=== PATIENT | male | born 1990 | race Caucasian/White ===

== ENCOUNTER 2024-05-05 22:20 | Inpatient (IN) ==
[2024-05-05] MEDS: Thiamine 100 MG/ML 2 ml VIAL (200 mg) IM ONE (23:28)
[2024-05-05] MEDS: LORazepam 2 mg VIAL 1 ml IV PUSH SCH (23:28)
[2024-05-06 00:01] LABS: High Sens Troponin Baseline 25 pg/mL (<20)
[2024-05-06] MEDS ORDERED: Lorazepam PYXIS KEY PRN ×5 (00:21→18:30)
[2024-05-06] MEDS ORDERED: LORazepam 2 mg VIAL 1 ml IV PUSH ONE (00:21)
[2024-05-06] MEDS: LORazepam 2 mg VIAL 1 ml IV PUSH ONE ×6 (00:29→18:33)
[2024-05-06] MEDS: Lactated Ringers 1000 ml BAG 1,000 ML IV ONE (00:31)
[2024-05-06] MEDS: Lactated Ringers SEPSIS* BAG 2,400 ML IV ONE (01:22)
[2024-05-06 01:38] LABS: Hematocrit 38.4 % (38-53); Mean Corpuscular Hemoglobin 31.8 pg (27-33); Mean Corpuscular Hgb Conc 33.9 g/dL (31-36); Mean Corpuscular Volume 93.7 fL (80-97); Red Cell Distribution Width 14.8 % (12-17)
[2024-05-06 01:39] LABS: ABS Lymphocytes 0.5 10^3/uL (1.0-4.8); ABS Monocytes 0.6 10^3/uL (0.0-1.1); ABS Neutrophils 12.8 10^3/uL (1.5-7.6); ABS Nucleated RBC 0.03 10^3/ul
[2024-05-06 01:40] LABS: Lymphocyte % 3.5 %; Nucleated Red Blood Cells % 0.2 %/100WBC (0.0-0.8)
[2024-05-06 01:42] LABS: Platelet Count 83 10^3/uL (150-450)
[2024-05-06 01:44] LABS: Sodium 123 mmol/L (135-145)
[2024-05-06 01:45] LABS: Chloride 82 mmol/L (101-111)
[2024-05-06 01:46] LABS: Anion Gap 22 mmol/L (2-16); Blood Urea Nitrogen 7 mg/dL (6-24); CO2 Carbon Dioxide 19 mmol/L (22-32); Glucose 138 mg/dL (70-100)
[2024-05-06 01:47] LABS: Calcium 9.1 mg/dL (8.6-10.3); Creatinine, Serum 0.69 mg/dL (0.67-1.17); eGFR CKD-EPI 123.8 (>60)
[2024-05-06 01:49] LABS: Magnesium 1.7 mg/dL (1.9-2.7); Total Protein 5.9 g/dL (6.4-8.9)
[2024-05-06 01:50] LABS: ALT 141 U/L (7-52); Albumin 3.5 g/dL (3.2-5.2); Albumin/Globulin Ratio 1.5 (1-3); Alkaline Phosphatase 317 U/L (35-149); Globulin 2.4 g/dL (2-4)
[2024-05-06] MEDS: Magnesium Sulfate IV 1GM/100ML 1 GM/100 ML BAG IV ONE (03:13)
[2024-05-06] MEDS: Potassium Chlor 20 meq TAB.ER PO ONE ×2 (03:36→10:32)
[2024-05-06] MEDS ORDERED: Metoprolol Tartrate 5 mg VIAL 5 ml VIAL (1 mg/ml) IV ONE (03:59)
[2024-05-06] MEDS ORDERED: Metoprolol Tartrate 5 mg VIAL 5 ml VIAL (1 mg/ml) IV PRN (03:59)
[2024-05-06] MEDS ORDERED: Polyethylene Glycol 3350 17 GM PACKET PO PRN (04:04)
[2024-05-06] MEDS ORDERED: Al Hydrox/Mg Hydrox/Simet LIQ 30 ML UDC PO PRN (04:04)
[2024-05-06] MEDS: Metoprolol Tartrate 5 mg VIAL 5 ml VIAL (1 mg/ml) IV ONE (04:16)
[2024-05-06] MEDS ORDERED: Sulfur Hexaflouride MICROSPHR 25 MG VIAL IV PRN (04:20)
[2024-05-06] MEDS: Magnesium Sulfate 2 gm BAG 2 GM/50 ML BAG IVPB ONE (04:40)
[2024-05-06] MEDS: NS 0.9% 1000 ml BAG 1,000 ML IV SCH (04:43)
[2024-05-06] MEDS: Magnesium Sulf 4 GM/100 ML IV 4,000 MG/100 ML BAG IVPB ONE (04:50)
[2024-05-06] MEDS: KCL 20 MEQ/100 ML IVPREMIX 20 MEQ/100 ML BAG IV SCH (05:57)
[2024-05-06 06:31] LABS: Calcium 8.7 mg/dL (8.6-10.3); Creatinine, Serum 0.81 mg/dL (0.67-1.17); Potassium 3.1 mmol/L (3.5-5.0); eGFR CKD-EPI 117.9 (>60)
[2024-05-06] MEDS ORDERED: D5LR 20 MEQ KCL 1000 ml BAG 1,000 ML IV SCH (08:00)
[2024-05-06] MEDS: Multivitamins/Minerals TAB PO SCH (08:16)
[2024-05-06] MEDS: D5W NS 0.9% 20Meq KCL 1000 ml 1,000 ML IV SCH (09:04)
[2024-05-06 09:36] LABS: INR 1.61 (0.85-1.14)
[2024-05-06 14:51] LABS: Albumin 3.2 g/dL (3.2-5.2); Albumin/Globulin Ratio 1.6 (1-3); Calcium 9.1 mg/dL (8.6-10.3); Creatinine, Serum 1.17 mg/dL (0.67-1.17); Potassium 3.6 mmol/L (3.5-5.0); Total Bilirubin 9.6 mg/dL (0.2-1.0); Total Protein 5.2 g/dL (6.4-8.9); eGFR CKD-EPI 83.4 (>60)
[2024-05-06] MEDS: LORazepam 2 mg VIAL 1 ml ONE ×2 (16:15→18:39)
[2024-05-06] MEDS: LORazepam 2 mg VIAL 1 ml IV PUSH SCH ×2 (16:53→19:00)
[2024-05-06] MEDS: NS 0.9% 500 ml BAG 500 ML IV ONE (18:23)
[2024-05-06] MEDS: D5NS 0.9% 1000 ml BAG 1,000 ML IV SCH (19:04)
[2024-05-06] MEDS ORDERED: PHENobarbital IV 65 MG/ML 1 ml VIAL IVPB ONE (20:41)
[2024-05-06] MEDS: NS 0.9% IVPB ONE (21:28)
[2024-05-06] MEDS: PHENOBARBITAL IVPB ONE (21:28)
[2024-05-07] MEDS: NS 0.9% 500 ml BAG 500 ML IV ONE (00:10)
[2024-05-07] MEDS: NS 0.9% 250 ml 250 ML IV ONE (02:33)
[2024-05-07] MEDS: Digoxin IV 0.5 MG/2 ML AMP (0.25 MG/ML) IV SLOW PU ONE (03:30)
[2024-05-07 04:13] LABS: ABS Basophils 0.1 10^3/uL (0.0-0.1); ABS Lymphocytes 1.3 10^3/uL (1.0-4.8); ABS Monocytes 0.6 10^3/uL (0.0-1.1); ABS Neutrophils 9.1 10^3/uL (1.5-7.6); ABS Nucleated RBC 0.01 10^3/ul; Eosinophil % 0.1 %; Hematocrit 33.1 % (38-53); Hemoglobin 11.6 g/dL (13.2-16.3); Mean Corpuscular Hemoglobin 32.4 pg (27-33); Mean Corpuscular Hgb Conc 35.1 g/dL (31-36); Mean Corpuscular Volume 92.3 fL (80-97); Mean Platelet Volume 8.6 fL (7.5-11.2); Nucleated Red Blood Cells % 0.1 %/100WBC (0.0-0.8); Platelet Count 86 10^3/uL (150-450); Red Blood Count 3.58 10^6/uL (4.06-5.63); Red Cell Distribution Width 14.7 % (12-17); White Blood Count 11.2 10^3/uL (3.6-10.2)
[2024-05-07 04:42] LABS: INR 1.73 (0.85-1.14)
[2024-05-07 04:59] LABS: ALT 111 U/L (7-52); AST 348 U/L (13-39); Albumin 2.9 g/dL (3.2-5.2); Albumin/Globulin Ratio 1.6 (1-3); Alkaline Phosphatase 257 U/L (35-149); Anion Gap 6 mmol/L (2-16); Blood Urea Nitrogen 12 mg/dL (6-24); CO2 Carbon Dioxide 28 mmol/L (22-32); Calcium 8.7 mg/dL (8.6-10.3); Chloride 93 mmol/L (101-111); Creatinine, Serum 1.38 mg/dL (0.67-1.17); Globulin 1.8 g/dL (2-4); Glucose 108 mg/dL (70-100); Potassium 3.4 mmol/L (3.5-5.0); Sodium 127 mmol/L (135-145); Total Bilirubin 9.8 mg/dL (0.2-1.0); Total Protein 4.7 g/dL (6.4-8.9); eGFR CKD-EPI 68.4 (>60)
[2024-05-07] MEDS: Metoprolol Tartrate 5 mg VIAL 5 ml VIAL (1 mg/ml) IV ONE (05:51)
[2024-05-07] MEDS: KCL 20 MEQ/100 ML IVPREMIX 20 MEQ/100 ML BAG IV SCH (05:53)
[2024-05-07] MEDS: NS 0.9% 1000 ml BAG 1,000 ML IV SCH (05:56)
[2024-05-07 08:59] LABS: Magnesium 2.3 mg/dL (1.9-2.7); Phosphorus < 1.0 mg/dL (2.5-5.0)
[2024-05-07] MEDS: Albumin Human 25% 25 GM/100 ML BTL IV SCH (09:21)
[2024-05-07] MEDS: cefTRIAXone 1 gm/50 mL D5W 1 GM/50 ML BAG IV SCH (10:08)
[2024-05-07] MEDS: NS 0.9% IV ONE (10:22)
[2024-05-07] MEDS: PHENOBARBITAL IV ONE (10:22)
[2024-05-07] MEDS: Thiamine 100 MG/ML 2 ml VIAL 100 MG in NS 0.9% 50 ML 50 ML IV SCH (10:42)
[2024-05-07] MEDS: ACETYLCYSTEINE IV ONE (11:01)
[2024-05-07] MEDS: D5W IV ONE (11:01)
[2024-05-07] MEDS: methylPREDNISolone SOD SUCC 40 mg/ml 1 ml VIAL IV SCH (11:13)
[2024-05-07] MEDS: Sodium Phosphate IV 45 MMOL in NS 0.9% 250 ml 250 ML IV ONE ×2 (11:14→18:01)
[2024-05-07] MEDS ORDERED: ACETYLCYSTEINE IV SCH ×3 (12:00→18:00)
[2024-05-07] MEDS ORDERED: D5W IV SCH ×3 (12:00→18:00)
[2024-05-07] MEDS: Piperacillin/Tazobac 3.375 BAG 3.375 GM/100 ML BAG IV ONE (12:28)
[2024-05-07] MEDS: Famotidine IV 10 MG/ML 2 ml VIAL (20 mg) IV SLOW PU SCH (12:28)
[2024-05-07] MEDS: Norepinephrine 4 MG/250mL D5W 4,000 MCG/250 ML BAG IV ONE (12:33)
[2024-05-07] MEDS: Norepinephrine 4 MG/250mL D5W 4,000 MCG/250 ML BAG IV SCH (12:40)
[2024-05-07] MEDS ORDERED: Norepinephrine 4 MG/250mL D5W 4,000 MCG/250 ML BAG IV SCH ×2 (13:00)
[2024-05-07] MEDS ORDERED: Zosyn per Pharmacy NOTE FOLLOW UP SCH (13:00)
[2024-05-07] MEDS: Heparin 5000 UNITS/ML 1 mL VIAL SUBCUT SCH (15:02)
[2024-05-07 15:35] LABS: Venous Bicarbonate HCO3 26.2 mmol/L (24-28)
[2024-05-07] MEDS ORDERED: Midazolam 10 mg/10 ml VIAL 1 mg/ml 10 ml VIAL (10 mg) ONE (15:57)
[2024-05-07] MEDS ORDERED: Etomidate 40 mg/20 ml (2 MG/ML) 20 ml VIAL (40 mg) ONE (15:57)
[2024-05-07] MEDS ORDERED: fentaNYL 250 mcg/5 ml 50 MCG/ML 5 ml VIAL (250 MCG) ONE (15:57)
[2024-05-07 15:59] LABS: Cholesterol 147 mg/dL; HDL Cholesterol < 4.2 mg/dL; LDL Cholesterol 73 mg/dL; Triglycerides 350 mg/dL
[2024-05-07] MEDS: Propofol 10 mg/ml 100 ML BTL 1,000 MG/100 ML BTL IV SCH (16:01)
[2024-05-07 16:15] LABS: Calcium 8.5 mg/dL (8.6-10.3); Creatinine, Serum 1.2 mg/dL (0.67-1.17); eGFR CKD-EPI 80.9 (>60)
[2024-05-07] MEDS: Midazolam 5 mg/5 ml VIAL 1 mg/ml 5 ml VIAL (5 mg) IV SLOW PU PRN (16:28)
[2024-05-07 16:30] LABS: Phosphorus 1.4 mg/dL (2.5-5.0)
[2024-05-07] MEDS: Rocuronium 50 mg VIAL 10 mg/ml 5 ml VIAL (50 mg) ONE (16:38)
[2024-05-07] MEDS: fentaNYL 100 mcg/2 ml 50 MCG/ML VIAL IV SLOW PU PRN (16:45)
[2024-05-07] MEDS: Thiamine 100 MG/ML 2 ml VIAL 500 MG in NS 0.9% 250 ml 250 ML IV SCH (17:35)
[2024-05-07 17:52] LABS: Hepatitis B Surface Antigen Nonreactive (Nonreactive)
[2024-05-07 17:57] LABS: Hepatitis A Ab IgM Negative (Negative)
[2024-05-07 17:58] LABS: Hepatitis B Core IgM Nonreactive (Nonreactive)
[2024-05-07 18:10] LABS: Hepatitis C Antibody Negative (Negative)
[2024-05-07 18:10] LABS: Urine Appearance Turbid; Urine Bilirubin 2+ (Negative); Urine Blood Negative (Negative); Urine Color Dark-Yellow; Urine Glucose Trace (Negative); Urine Ketones 2+ (Negative); Urine Nitrite Negative (Negative); Urine Protein 1+ (>=30 mg/dL) (Negative); Urine Specific Gravity 1.041 (1.002-1.030); Urine Urobilinogen Negative (Negative)
[2024-05-07] MEDS: Acetylcysteine IV 10,000 MG in D5W 1000 ml BAG 1,000 ML IV ONE (18:14)
[2024-05-07] MEDS: Midazolam PREMIXBAG 1 MG/ML NS 100 ML IV SCH (18:32)
[2024-05-07] MEDS ORDERED: PHENobarbital IV 65 MG/ML 1 ml VIAL IVPB ONE (18:41)
[2024-05-07] MEDS: fentaNYL INFUSION 50 mcg/mL VL 2,500 MCG/50 ML VIAL IV SCH (18:51)
[2024-05-07] MEDS: Midazolam 10 mg/10 ml VIAL 1 mg/ml 10 ml VIAL (10 mg) ONE ×2 (19:10)
[2024-05-07] MEDS: Midazolam 5 mg/5 ml VIAL 1 mg/ml 5 ml VIAL (5 mg) ONE (19:12)
[2024-05-07] MEDS: Propofol 10 mg/ml 100 ML BTL 1,000 MG/100 ML BTL ONE ×2 (19:12→19:14)
[2024-05-07] MEDS: fentaNYL 100 mcg/2 ml 50 MCG/ML VIAL ONE ×2 (19:16→19:17)
[2024-05-07] MEDS: Midazolam PREMIXBAG 1 MG/ML NS 100 ML IV ONE (19:17)
[2024-05-07 19:43] LABS: Urine Bacteria Absent /HPF (Absent); Urine Red Blood Cell Trace(0-2/hpf) /HPF (0-Trace); Urine Squamous Epithelial Cell Present /HPF (Absent); Urine White Blood Cell Trace(0-5/hpf) /HPF (0-Trace)
[2024-05-07 19:53] LABS: Resp Rate 14
[2024-05-07] MEDS: PHENobarbital IV 500 MG in NS 0.9% 100 ml BAG 100 ML IVPB ONE (19:54)
[2024-05-07 19:55] LABS: PCO2 Arterial 48 mmHg (35-45); PO2 Arterial 120 mmHg (80-100)
[2024-05-07] MEDS: Chlorhexidine MOUTHWASH 0.12% 15 ML UDC TOPICAL SCH (20:33)
[2024-05-07] MEDS: Pantoprazole VIAL 40 MG VIAL IV SCH (22:46)
[2024-05-08] MEDS: Acetaminophen IV 1 GM/100ML 1,000 MG/100 ML BAG IV PRN (02:13)
[2024-05-08] MEDS: fentaNYL INFUSION 50 mcg/mL VL 2,500 MCG/50 ML VIAL IV SCH (02:43)
[2024-05-08 04:41] LABS: INR 2.11 (0.85-1.14)
[2024-05-08 04:42] LABS: Hematocrit 32.7 % (38-53); Hemoglobin 11.2 g/dL (13.2-16.3); Mean Corpuscular Hemoglobin 32.9 pg (27-33); Mean Corpuscular Hgb Conc 34.4 g/dL (31-36); Mean Corpuscular Volume 95.8 fL (80-97); Mean Platelet Volume 8.5 fL (7.5-11.2); Platelet Count 115 10^3/uL (150-450); Red Blood Count 3.41 10^6/uL (4.06-5.63); Red Cell Distribution Width 15.7 % (12-17); White Blood Count 16.3 10^3/uL (3.6-10.2)
[2024-05-08 04:56] LABS: ABS Basophils 0.1 10^3/uL (0.0-0.1); ABS Lymphocytes 1.3 10^3/uL (1.0-4.8); ABS Monocytes 1.1 10^3/uL (0.0-1.1); ABS Neutrophils 13.8 10^3/uL (1.5-7.6); ABS Nucleated RBC 0.01 10^3/ul; Lymphocyte % 8.1 %
[2024-05-08 06:05] LABS: ALT 97 U/L (7-52); Albumin 3.8 g/dL (3.2-5.2); Albumin/Globulin Ratio 2.1 (1-3); Alkaline Phosphatase 237 U/L (35-149); Anion Gap 14 mmol/L (2-16); Blood Urea Nitrogen 14 mg/dL (6-24); CO2 Carbon Dioxide 26 mmol/L (22-32); Calcium 7.7 mg/dL (8.6-10.3); Chloride 93 mmol/L (101-111); Creatinine, Serum 1.43 mg/dL (0.67-1.17); Globulin 1.8 g/dL (2-4); Glucose 158 mg/dL (70-100); Sodium 133 mmol/L (135-145); Total Bilirubin 11.6 mg/dL (0.2-1.0); Total Protein 5.6 g/dL (6.4-8.9); eGFR CKD-EPI 65.5 (>60)
[2024-05-08 10:37] LABS: Cholesterol 138 mg/dL; HDL Cholesterol < 4.2 mg/dL; Lipase 80 U/L (11.0-82.0); Triglycerides 468 mg/dL
[2024-05-08 10:52] LABS: LDL Cholesterol Direct 96 mg/dL
[2024-05-08] MEDS: Acetylcysteine IV 10,000 MG in D5W 1000 ml BAG 1,000 ML IV SCH (11:16)
[2024-05-08] MEDS: Phytonadione IV (Adult) 10 MG in NS 0.9% 50 ML 50 ML IV ONE (11:21)
[2024-05-08] MEDS ORDERED: D5W IV SCH (12:00)
[2024-05-08] MEDS ORDERED: ACETYLCYSTEINE IV SCH (12:00)
[2024-05-08] MEDS: SODIUM PHOSPHATE IV ONE (12:17)
[2024-05-08] MEDS: NS 0.9% IV ONE (12:17)
[2024-05-08 14:08] LABS: Resp Rate 20
[2024-05-08 14:10] LABS: PCO2 Arterial 55 mmHg (35-45); PO2 Arterial 171 mmHg (80-100)
[2024-05-08 14:17] LABS: Hematocrit 32.6 % (38-53); Hemoglobin 10.9 g/dL (13.2-16.3); Mean Corpuscular Hemoglobin 31.7 pg (27-33); Mean Corpuscular Hgb Conc 33.3 g/dL (31-36); Mean Corpuscular Volume 95.3 fL (80-97); Mean Platelet Volume 8.3 fL (7.5-11.2); Platelet Count 114 10^3/uL (150-450); Red Blood Count 3.42 10^6/uL (4.06-5.63); Red Cell Distribution Width 15.4 % (12-17); White Blood Count 13.7 10^3/uL (3.6-10.2)
[2024-05-08 14:59] LABS: Hematocrit 32.6 % (38-53); Hemoglobin 10.8 g/dL (13.2-16.3); Mean Corpuscular Hemoglobin 31.9 pg (27-33); Mean Corpuscular Hgb Conc 33.2 g/dL (31-36); Mean Corpuscular Volume 95.9 fL (80-97); Mean Platelet Volume 8.3 fL (7.5-11.2); Platelet Count 118 10^3/uL (150-450); Red Cell Distribution Width 15.8 % (12-17)
[2024-05-08] MEDS: Heparin DRIP 25,000 UNITS BAG 25,000 UNITS/250 ML BAG IV SCH ×2 (15:04→23:23)
[2024-05-08] MEDS: Heparin 5000 UNITS/ML 1 mL VIAL IV SCH (15:07)
[2024-05-08] MEDS: Heparin 5000 UNITS/ML 1 mL VIAL ONE (15:13)
[2024-05-08 15:27] LABS: Creatinine, Serum 1.68 mg/dL (0.67-1.17)
[2024-05-08 15:44] LABS: ABS Basophils 0.1 10^3/uL (0.0-0.1); ABS Lymphocytes 0.8 10^3/uL (1.0-4.8); ABS Monocytes 0.7 10^3/uL (0.0-1.1); ABS Neutrophils 12.4 10^3/uL (1.5-7.6); ABS Nucleated RBC 0.01 10^3/ul; Lymphocyte % 5.8 %; Nucleated Red Blood Cells % 0.1 %/100WBC (0.0-0.8)
[2024-05-08] MEDS: ZOSYN 3.375 GM x ONE DOSE over 30 miuntes IV (18:14)
[2024-05-08 18:15] LABS: Potassium, Whole Blood 3.9 mmol/L (3.4-4.5)
[2024-05-08] MEDS: SODIUM PHOSPHATE IV SCH (20:11)
[2024-05-08] MEDS: NS 0.9% IV SCH (20:11)
[2024-05-08] MEDS ORDERED: Sodium Phosphate IV 45 MMOL in NS 0.9% 250 ml 250 ML IV ONE (21:00)
[2024-05-08] MEDS ORDERED: Heparin 5000 UNITS/ML 1 mL VIAL IV SCH (22:00)
[2024-05-08] MEDS ORDERED: ZOSYN 3.375 GM Q8H per EXTENDED INFUSION IV SCH (22:00)
[2024-05-08 22:45] LABS: Hemoglobin 10.7 g/dL (13.2-16.3); Mean Corpuscular Hemoglobin 31.6 pg (27-33); Mean Corpuscular Hgb Conc 33.4 g/dL (31-36); Mean Corpuscular Volume 94.6 fL (80-97); Mean Platelet Volume 7.9 fL (7.5-11.2); Platelet Count 120 10^3/uL (150-450); Red Blood Count 3.38 10^6/uL (4.06-5.63); Red Cell Distribution Width 15.8 % (12-17); White Blood Count 14.2 10^3/uL (3.6-10.2)
[2024-05-08 23:26] LABS: ABS Basophils 0.1 10^3/uL (0.0-0.1); ABS Lymphocytes 0.9 10^3/uL (1.0-4.8); ABS Monocytes 0.9 10^3/uL (0.0-1.1); ABS Neutrophils 12.3 10^3/uL (1.5-7.6); ABS Nucleated RBC 0.01 10^3/ul; Lymphocyte % 6.6 %; Nucleated Red Blood Cells % 0.1 %/100WBC (0.0-0.8)
[2024-05-08] MEDS: DEXMEDETOMIDINE IV SCH (23:40)
[2024-05-08] MEDS: ZOSYN 3.375 GM Q8H per EXTENDED INFUSION IV SCH (23:56)
[2024-05-08 23:57] LABS: Creatinine, Serum 1.89 mg/dL (0.67-1.17); Phosphorus 6.2 mg/dL (2.5-5.0); eGFR CKD-EPI 46.9 (>60)
[2024-05-09 04:30] LABS: Hematocrit 31.3 % (38-53); Hemoglobin 10.4 g/dL (13.2-16.3); Mean Corpuscular Hemoglobin 31.7 pg (27-33); Mean Corpuscular Hgb Conc 33.3 g/dL (31-36); Platelet Count 122 10^3/uL (150-450); Red Cell Distribution Width 15.5 % (12-17); White Blood Count 12.9 10^3/uL (3.6-10.2)
[2024-05-09 04:36] LABS: INR 1.87 (0.85-1.14)
[2024-05-09 05:22] LABS: ABS Monocytes 0.9 10^3/uL (0.0-1.1); ABS Nucleated RBC 0.02 10^3/ul; Lymphocyte % 7.8 %; Nucleated Red Blood Cells % 0.2 %/100WBC (0.0-0.8)
[2024-05-09 05:49] LABS: Albumin/Globulin Ratio 2.4 (1-3); Calcium 6.9 mg/dL (8.6-10.3); Creatinine, Serum 1.83 mg/dL (0.67-1.17); Globulin 1.7 g/dL (2-4); HDL Cholesterol 4.7 mg/dL; Magnesium 1.9 mg/dL (1.9-2.7); Phosphorus 5.2 mg/dL (2.5-5.0); Potassium 3.3 mmol/L (3.5-5.0); Total Bilirubin 11.1 mg/dL (0.2-1.0); Total Protein 5.7 g/dL (6.4-8.9); eGFR CKD-EPI 48.7 (>60)
[2024-05-09] MEDS: KCL 20 MEQ/100 ML IVPREMIX 20 MEQ/100 ML BAG IV SCH (08:03)
[2024-05-09] MEDS: methylPREDNISolone SOD SUCC 40 mg/ml 1 ml VIAL IV SCH (08:10)
[2024-05-09] MEDS: Senna TAB 8.6 mg TAB PO SCH (09:32)
[2024-05-09 09:56] LABS: Resp Rate 25
[2024-05-09 10:03] LABS: PCO2 Arterial 47 mmHg (35-45); PO2 Arterial 143 mmHg (80-100)
[2024-05-09] MEDS: Thiamine 100 MG/ML 2 ml VIAL 250 MG in NS 0.9% 100 ml BAG 100 ML IV SCH (16:56)
[2024-05-09 17:47] LABS: Urine Appearance Turbid; Urine Bilirubin 1+ (Negative); Urine Blood 2+ (Negative); Urine Color Dark-Yellow; Urine Glucose Trace (Negative); Urine Ketones 1+ (Negative); Urine Nitrite Negative (Negative); Urine Protein 1+ (>=30 mg/dL) (Negative); Urine Specific Gravity 1.031 (1.002-1.030); Urine Urobilinogen Negative (Negative)
[2024-05-09 17:51] LABS: Urine Bacteria 1+ /HPF (Absent); Urine Red Blood Cell 3+(>10/hpf) /HPF (0-Trace); Urine Squamous Epithelial Cell Present /HPF (Absent); Urine White Blood Cell Trace(0-5/hpf) /HPF (0-Trace)
[2024-05-09] MEDS: Lactulose 30 ml UDC NG TUBE SCH (20:20)
[2024-05-09] MEDS: Polyethylene Glycol 3350 17 GM PACKET PO SCH (20:20)
[2024-05-10 05:16] LABS: Resp Rate 25
[2024-05-10 05:18] LABS: PCO2 Arterial 48 mmHg (35-45); PO2 Arterial 117 mmHg (80-100)
[2024-05-10 05:24] LABS: Hematocrit 31.5 % (38-53); Hemoglobin 10.7 g/dL (13.2-16.3); Mean Corpuscular Hemoglobin 32.4 pg (27-33); Mean Corpuscular Hgb Conc 34.1 g/dL (31-36); Mean Corpuscular Volume 95.2 fL (80-97); Mean Platelet Volume 7.9 fL (7.5-11.2); Platelet Count 137 10^3/uL (150-450); Red Blood Count 3.31 10^6/uL (4.06-5.63); Red Cell Distribution Width 15.9 % (12-17); White Blood Count 13.8 10^3/uL (3.6-10.2)
[2024-05-10 05:59] LABS: Anion Gap 13 mmol/L (2-16); Blood Urea Nitrogen 30 mg/dL (6-24); CO2 Carbon Dioxide 25 mmol/L (22-32); Calcium 6.7 mg/dL (8.6-10.3); Chloride 96 mmol/L (101-111); Creatinine, Serum 1.91 mg/dL (0.67-1.17); Glucose 140 mg/dL (70-100); Potassium 3.7 mmol/L (3.5-5.0); Sodium 134 mmol/L (135-145); eGFR CKD-EPI 46.3 (>60)
[2024-05-10 06:03] LABS: ALT 56 U/L (7-52); AST 148 U/L (13-39); Cholesterol 133 mg/dL; Magnesium 1.9 mg/dL (1.9-2.7); Phosphorus 2.7 mg/dL (2.5-5.0)
[2024-05-10 06:04] LABS: Albumin 4.3 g/dL (3.2-5.2); Albumin/Globulin Ratio 2.9 (1-3); Alkaline Phosphatase 158 U/L (35-149); Globulin 1.5 g/dL (2-4); Total Protein 5.8 g/dL (6.4-8.9); Triglycerides 289 mg/dL
[2024-05-10 06:15] LABS: HDL Cholesterol < 4.2 mg/dL; LDL Cholesterol 71 mg/dL
[2024-05-10 06:16] LABS: Total Bilirubin 12.1 mg/dL (0.2-1.0)
[2024-05-10 06:38] LABS: Activated Partial Thrombo Time 79.1 seconds (26.0-38.0); INR 1.63 (0.85-1.14)
[2024-05-10 07:15] LABS: ABS Basophils 0.1 10^3/uL (0.0-0.1); ABS Lymphocytes 1.2 10^3/uL (1.0-4.8); ABS Monocytes 1.3 10^3/uL (0.0-1.1); ABS Neutrophils 11.2 10^3/uL (1.5-7.6); ABS Nucleated RBC 0.01 10^3/ul; Eosinophil % 0.1 %; Lymphocyte % 8.4 %; Nucleated Red Blood Cells % 0.1 %/100WBC (0.0-0.8); RBC Morphology Normal (Normal)
[2024-05-10 11:29] LABS: Cytomegalovirus IgG Antibody Negative (Negative)
[2024-05-10] MEDS: NORMOSOL-R pH 7.4 1000 mL BAG 1,000 ML IV SCH (12:04)
[2024-05-10] MEDS: fentaNYL 100 mcg/2 ml 50 MCG/ML VIAL ONE (17:33)
[2024-05-11 04:50] LABS: Hematocrit 31.7 % (38-53); Hemoglobin 10.8 g/dL (13.2-16.3); Mean Corpuscular Hemoglobin 32.5 pg (27-33); Mean Corpuscular Hgb Conc 34.1 g/dL (31-36); Mean Corpuscular Volume 95.1 fL (80-97); Mean Platelet Volume 7.5 fL (7.5-11.2); Platelet Count 145 10^3/uL (150-450); Red Blood Count 3.34 10^6/uL (4.06-5.63); Red Cell Distribution Width 15.7 % (12-17); White Blood Count 13.4 10^3/uL (3.6-10.2)
[2024-05-11 05:09] LABS: Resp Rate 25
[2024-05-11 05:12] LABS: INR 1.58 (0.85-1.14)
[2024-05-11 05:17] LABS: PCO2 Arterial 48 mmHg (35-45); PO2 Arterial 147 mmHg (80-100)
[2024-05-11 06:37] LABS: Anion Gap 13 mmol/L (2-16); Blood Urea Nitrogen 28 mg/dL (6-24); CO2 Carbon Dioxide 27 mmol/L (22-32); Calcium 6.7 mg/dL (8.6-10.3); Chloride 100 mmol/L (101-111); Creatinine, Serum 1.34 mg/dL (0.67-1.17); Glucose 108 mg/dL (70-100); Potassium 3.9 mmol/L (3.5-5.0); Sodium 140 mmol/L (135-145); eGFR CKD-EPI 70.8 (>60)
[2024-05-11 06:47] LABS: ALT 50 U/L (7-52); AST 142 U/L (13-39); Albumin 3.8 g/dL (3.2-5.2); Albumin/Globulin Ratio 2.7 (1-3); Alkaline Phosphatase 145 U/L (35-149); Cholesterol 149 mg/dL; Globulin 1.4 g/dL (2-4); HDL Cholesterol < 4.2 mg/dL; LDL Cholesterol 70 mg/dL; Total Bilirubin 13.9 mg/dL (0.2-1.0); Total Protein 5.2 g/dL (6.4-8.9); Triglycerides 375 mg/dL
[2024-05-11] MEDS ORDERED: Heparin 5000 UNITS/ML 1 mL VIAL IV SCH (09:00)
[2024-05-11] MEDS: Heparin DRIP 25,000 UNITS BAG 25,000 UNITS/250 ML BAG IV SCH (09:16)
[2024-05-11] MEDS: Lidocaine 1% VIAL 10 MG/ML 30 ML VIAL ONE (10:42)
[2024-05-11 11:35] LABS: PCO2 Arterial 53 mmHg (35-45); PO2 Arterial 71 mmHg (80-100)
[2024-05-11 11:40] LABS: Body Fluid Appearance Clear; Body Fluid Color Amber
[2024-05-11 11:58] LABS: Body Fluid Total Nucleated 81 /mcL
[2024-05-11 12:03] LABS: EBV, IgG Ab to Early Antigen Negative (Negative)
[2024-05-11 12:38] LABS: Body Fluid Band 5 %; Body Fluid Mono 7 %; Body Fluid Total Cells Counted 200
[2024-05-11 15:32] LABS: PCO2 Arterial 47 mmHg (35-45); PO2 Arterial 133 mmHg (80-100)
[2024-05-11] MEDS ORDERED: Senna TAB 8.6 mg TAB PO PRN (17:46)
[2024-05-12 04:46] LABS: Hematocrit 33.7 % (38-53); Hemoglobin 11.3 g/dL (13.2-16.3); Mean Corpuscular Hgb Conc 33.4 g/dL (31-36); Mean Corpuscular Volume 95.7 fL (80-97); Mean Platelet Volume 7.7 fL (7.5-11.2); Platelet Count 174 10^3/uL (150-450); Red Blood Count 3.52 10^6/uL (4.06-5.63); Red Cell Distribution Width 16.2 % (12-17); White Blood Count 17.2 10^3/uL (3.6-10.2)
[2024-05-12 05:15] LABS: INR 1.63 (0.85-1.14)
[2024-05-12 05:20] LABS: Calcium 7.3 mg/dL (8.6-10.3); Creatinine, Serum 0.99 mg/dL (0.67-1.17); Potassium 3.4 mmol/L (3.5-5.0); eGFR CKD-EPI 101.9 (>60)
[2024-05-12 05:22] LABS: Albumin 3.7 g/dL (3.2-5.2); Albumin/Globulin Ratio 2.3 (1-3); Globulin 1.6 g/dL (2-4); HDL Cholesterol 5.6 mg/dL; Magnesium 2.2 mg/dL (1.9-2.7); Total Bilirubin 14.4 mg/dL (0.2-1.0); Total Protein 5.3 g/dL (6.4-8.9)
[2024-05-12 06:07] LABS: Resp Rate 25
[2024-05-12 06:09] LABS: PCO2 Arterial 38 mmHg (35-45); PO2 Arterial 72 mmHg (80-100)
[2024-05-12] MEDS: KCL 20 MEQ/100 ML IVPREMIX 20 MEQ/100 ML BAG IV SCH (06:28)
[2024-05-12] MEDS: Dextran 70/Hypromellose Tears Eye Drops 15 ml BTL (for Artificials Tears) BOTH EYES PRN (08:21)
[2024-05-12] MEDS ORDERED: Vancomycin per Pharmacy 1 EA NOTE FOLLOW UP PRN (08:21)
[2024-05-12 09:53] LABS: Vitamin D Total 25(OH) 10.1 ng/mL (20-50)
[2024-05-12] MEDS: Vancomycin 2,000 MG in NS 0.9% 500 ml BAG 500 ML IVPB ONE (10:10)
[2024-05-12] MEDS: Calcium Gluconate 2 GM in NS 0.9% 100 ml BAG 100 ML IVPB ONE (10:13)
[2024-05-12] MEDS: Cholecalciferol (VIT D3) 1,000 unit TAB G TUBE SCH (16:48)
[2024-05-12] MEDS: Midazolam 5 mg/5 ml VIAL 1 mg/ml 5 ml VIAL (5 mg) IV SLOW PU ONE (17:55)
[2024-05-12] MEDS ORDERED: metroNIDAZOLE IV 500 MG/100ML 500 MG/100 ML BAG IVPB SCH (18:00)
[2024-05-12] MEDS ORDERED: Cefepime 2 GM in Dextrose 2 GM/50 ML BAG IV SCH (18:00)
[2024-05-12] MEDS: Vancomycin 1,250 MG in NS 0.9% 250 ml 250 ML IVPB SCH (18:15)
[2024-05-12] MEDS: Midazolam 5 mg/5 ml VIAL 1 mg/ml 5 ml VIAL (5 mg) ONE (18:23)
[2024-05-12] MEDS: Midazolam PREMIXBAG 1 MG/ML NS 100 ML IV SCH (18:23)
[2024-05-12] MEDS: Midazolam PREMIXBAG 1 MG/ML NS 100 ML IV ONE (18:24)
[2024-05-12] MEDS: Cefepime 2 GM in Dextrose 2 GM/50 ML BAG IV SCH (20:27)
[2024-05-12] MEDS: metroNIDAZOLE IV 500 MG/100ML 500 MG/100 ML BAG IVPB SCH (20:45)
[2024-05-13 04:43] LABS: Hemoglobin 10.8 g/dL (13.2-16.3); Mean Corpuscular Hemoglobin 31.5 pg (27-33); Mean Corpuscular Hgb Conc 32.6 g/dL (31-36); Mean Corpuscular Volume 96.3 fL (80-97); Mean Platelet Volume 8.8 fL (7.5-11.2); Platelet Count 186 10^3/uL (150-450); Red Blood Count 3.42 10^6/uL (4.06-5.63); Red Cell Distribution Width 16.7 % (12-17); White Blood Count 19.5 10^3/uL (3.6-10.2)
[2024-05-13 04:45] LABS: Activated Partial Thrombo Time 100.2 seconds (26.0-38.0)
[2024-05-13 05:13] LABS: Calcium 7.3 mg/dL (8.6-10.3); Creatinine, Serum 1.67 mg/dL (0.67-1.17); Potassium 3.8 mmol/L (3.5-5.0); eGFR CKD-EPI 54.4 (>60)
[2024-05-13 05:16] LABS: Albumin 3.5 g/dL (3.2-5.2); Albumin/Globulin Ratio 2.1 (1-3); Globulin 1.7 g/dL (2-4); Phosphorus 1.3 mg/dL (2.5-5.0); Total Bilirubin 15.2 mg/dL (0.2-1.0); Total Protein 5.2 g/dL (6.4-8.9)
[2024-05-13] MEDS: Potassium Phosphate IV 15 MMOL in NS 0.9% 250 ml 250 ML IVPB ONE (06:27)
[2024-05-13 06:50] LABS: Magnesium 2.5 mg/dL (1.9-2.7)
[2024-05-13 07:09] LABS: ABS Basophils 0.1 10^3/uL (0.0-0.1); ABS Eosinophils 0.1 10^3/uL (0.0-0.5); ABS Lymphocytes 2.8 10^3/uL (1.0-4.8); ABS Monocytes 1.4 10^3/uL (0.0-1.1); ABS Nucleated RBC 0.02 10^3/ul; Eosinophil % 0.4 %; Lymphocyte % 14.3 %; Nucleated Red Blood Cells % 0.1 %/100WBC (0.0-0.8); Stomatocytes 2+; Target Cells 2+
[2024-05-13] MEDS ORDERED: Calcium Gluconate 2 GM in NS 0.9% 100 ml BAG 100 ML IVPB ONE (08:00)
[2024-05-13] MEDS: CALCIUM GLUCONATE 1GM/50ML NS BAG IV SCH (08:03)
[2024-05-13] MEDS: Albumin Human 25% 25 GM/100 ML BTL IV SCH (08:03)
[2024-05-13 10:38] LABS: INR 1.53 (0.85-1.14)
[2024-05-13 11:09] LABS: Resp Rate 19
[2024-05-13 11:11] LABS: PCO2 Arterial 48 mmHg (35-45); PO2 Arterial 73 mmHg (80-100)
[2024-05-13] MEDS: NS 0.9% 500 ml BAG 500 ML IV ONE (12:41)
[2024-05-13] MEDS: Potassium Phosphate IV 10 MMOL in NS 0.9% 250 ml 250 ML IVPB ONE (14:49)
[2024-05-13] MEDS ORDERED: Vancomycin Trough Check NOTE FOLLOW UP ONE (17:30)
[2024-05-13] MEDS: Midazolam PREMIXBAG 1 MG/ML NS 100 ML IV SCH (18:08)
[2024-05-14] MEDS: Lactated Ringers 1000 ml BAG 500 ML IV ONE ×2 (03:03→03:37)
[2024-05-14 04:24] LABS: Hematocrit 30.2 % (38-53); Hemoglobin 9.8 g/dL (13.2-16.3); Mean Corpuscular Hemoglobin 31.4 pg (27-33); Mean Corpuscular Hgb Conc 32.4 g/dL (31-36); Mean Corpuscular Volume 96.8 fL (80-97); Mean Platelet Volume 8.6 fL (7.5-11.2); Platelet Count 256 10^3/uL (150-450); Red Blood Count 3.12 10^6/uL (4.06-5.63); Red Cell Distribution Width 16.9 % (12-17); White Blood Count 23.3 10^3/uL (3.6-10.2)
[2024-05-14 04:27] LABS: Activated Partial Thrombo Time 64.8 seconds (26.0-38.0); INR 1.44 (0.85-1.14)
[2024-05-14 05:26] LABS: Creatinine, Serum 2.58 mg/dL (0.67-1.17); Potassium 4.3 mmol/L (3.5-5.0); Vancomycin Random 17.8 mcg/mL; eGFR CKD-EPI 32.3 (>60)
[2024-05-14] MEDS: Vancomycin Random Level NOTE FOLLOW UP ONE (05:30)
[2024-05-14 05:35] LABS: Albumin 4.1 g/dL (3.2-5.2); Albumin/Globulin Ratio 2.9 (1-3); Globulin 1.4 g/dL (2-4); Phosphorus 2.2 mg/dL (2.5-5.0); Total Bilirubin 14.1 mg/dL (0.2-1.0); Total Protein 5.5 g/dL (6.4-8.9)
[2024-05-14] MEDS: Vancomycin 1,750 MG in NS 0.9% 500 ml BAG 500 ML IVPB ONE (09:22)
[2024-05-14] MEDS: Vancomycin 1,000 MG in NS 0.9% 250 ml 250 ML IVPB ONE (11:03)
[2024-05-14] MEDS: Sodium Phosphate IV 15 MMOL in NS 0.9% 250 ml 250 ML IV ONE (11:04)
[2024-05-14] MEDS ORDERED: Petrolatum 5 gm PACKET TOPICAL PRN (13:13)
[2024-05-14] MEDS: Lactated Ringers 1000 ml BAG 1,000 ML IV ONE (13:45)
[2024-05-14 14:10] LABS: Body Fluid Bilirubin 9.2 mg/dL
[2024-05-14] MEDS: NS 0.9% 500 ml BAG 500 ML IV ONE (23:31)
[2024-05-15 04:34] LABS: Hematocrit 28.6 % (38-53); Hemoglobin 9.5 g/dL (13.2-16.3); Mean Corpuscular Hemoglobin 32.4 pg (27-33); Mean Corpuscular Hgb Conc 33.1 g/dL (31-36); Mean Corpuscular Volume 97.7 fL (80-97); Mean Platelet Volume 8.6 fL (7.5-11.2); Platelet Count 259 10^3/uL (150-450); Red Blood Count 2.93 10^6/uL (4.06-5.63); Red Cell Distribution Width 17.6 % (12-17); White Blood Count 23.8 10^3/uL (3.6-10.2)
[2024-05-15 05:27] LABS: Calcium 8.3 mg/dL (8.6-10.3); Creatinine, Serum 3.52 mg/dL (0.67-1.17); Potassium 4.1 mmol/L (3.5-5.0); Vancomycin Random 20.3 mcg/mL; eGFR CKD-EPI 22.2 (>60)
[2024-05-15 05:33] LABS: Albumin 4.2 g/dL (3.2-5.2); Globulin 1.4 g/dL (2-4); Magnesium 2.6 mg/dL (1.9-2.7); Phosphorus 1.6 mg/dL (2.5-5.0); Total Bilirubin 12.5 mg/dL (0.2-1.0); Total Protein 5.6 g/dL (6.4-8.9)
[2024-05-15 05:41] LABS: ABS Basophils 0.3 10^3/uL (0.0-0.1); ABS Eosinophils 0.1 10^3/uL (0.0-0.5); ABS Lymphocytes 3.9 10^3/uL (1.0-4.8); ABS Monocytes 1.8 10^3/uL (0.0-1.1); ABS Neutrophils 17.8 10^3/uL (1.5-7.6); ABS Nucleated RBC 0.15 10^3/ul; Eosinophil % 0.2 %; Lymphocyte % 16.4 %; Nucleated Red Blood Cells % 0.6 %/100WBC (0.0-0.8)
[2024-05-15 05:42] LABS: Anisocytosis 1+; Stomatocytes 1+; Target Cells 1+; Toxic Granulation 1+
[2024-05-15] MEDS: Albumin Human 25% 25 GM/100 ML BTL IV ONE (09:39)
[2024-05-15] MEDS: Vancomycin Random Level NOTE FOLLOW UP ONE (09:40)
[2024-05-15] MEDS: Pantoprazole VIAL 40 MG VIAL IV SCH (09:46)
[2024-05-15] MEDS: fentaNYL INFUSION 50 mcg/mL VL 2,500 MCG/50 ML VIAL IV SCH (10:30)
[2024-05-15] MEDS: Artificial Tear OPHTH.OINT 3.5 GM BOTH EYES PRN (11:22)
[2024-05-15 15:23] LABS: Blood Urea Nitrogen 79 mg/dL (6-24); CO2 Carbon Dioxide 22 mmol/L (22-32); Calcium 8.2 mg/dL (8.6-10.3); Chloride 111 mmol/L (101-111); Creatinine, Serum 4.03 mg/dL (0.67-1.17); Glucose 141 mg/dL (70-100); Sodium 145 mmol/L (135-145); eGFR CKD-EPI 18.9 (>60)
[2024-05-15 15:26] LABS: Anion Gap 12 mmol/L (2-16)
[2024-05-15] MEDS: Albumin Human 25% 25 GM/100 ML BTL IV SCH (16:57)
[2024-05-15] MEDS ORDERED: fentaNYL 100 mcg/2 ml 50 MCG/ML VIAL IV SLOW PU PRN (18:14)
[2024-05-16] MEDS: Furosemide 40 mg/4 ml IV VIAL IV ONE (02:01)
[2024-05-16] MEDS: Furosemide 40 mg/4 ml IV VIAL IV SLOW PU ONE (02:43)
[2024-05-16] MEDS: Furosemide 20 mg/2 ml IV VIAL ONE (02:47)
[2024-05-16] MEDS: Furosemide 40 mg/4 ml IV VIAL ONE (02:47)
[2024-05-16 04:40] LABS: Hematocrit 28.5 % (38-53); Hemoglobin 8.9 g/dL (13.2-16.3); Mean Corpuscular Hemoglobin 31.8 pg (27-33); Mean Corpuscular Hgb Conc 31.4 g/dL (31-36); Mean Corpuscular Volume 101.3 fL (80-97); Mean Platelet Volume 8.9 fL (7.5-11.2); Platelet Count 268 10^3/uL (150-450); Red Blood Count 2.82 10^6/uL (4.06-5.63); Red Cell Distribution Width 19.4 % (12-17); White Blood Count 29.2 10^3/uL (3.6-10.2)
[2024-05-16 05:01] LABS: ABS Basophils 0.1 10^3/uL (0.0-0.1); ABS Lymphocytes 4.4 10^3/uL (1.0-4.8); ABS Monocytes 2.4 10^3/uL (0.0-1.1); ABS Neutrophils 22.3 10^3/uL (1.5-7.6); ABS Nucleated RBC 0.03 10^3/ul; Anisocytosis 1+; Basophilic Stippling 1+; Eosinophil % 0.1 %; Lymphocyte % 15.1 %; Macrocytosis 1+; Nucleated Red Blood Cells % 0.1 %/100WBC (0.0-0.8); Polychromasia 1+
[2024-05-16 06:11] LABS: Albumin 4.4 g/dL (3.2-5.2); Albumin/Globulin Ratio 2.9 (1-3); Calcium 8.1 mg/dL (8.6-10.3); Globulin 1.5 g/dL (2-4); Magnesium 3.1 mg/dL (1.9-2.7); Phosphorus 4.7 mg/dL (2.5-5.0); Potassium 5.4 mmol/L (3.5-5.0); Total Bilirubin 12.3 mg/dL (0.2-1.0); Total Protein 5.9 g/dL (6.4-8.9); Vancomycin Random 14.5 mcg/mL; eGFR CKD-EPI 14.6 (>60)
[2024-05-16] MEDS: Vancomycin Random Level NOTE FOLLOW UP ONE (06:24)
[2024-05-16] MEDS: Bumetanide IV 0.25 MG/ML 4 ml VIAL (1 mg) IV SLOW PU ONE ×2 (08:25→13:32)
[2024-05-16] MEDS: methylPREDNISolone SOD SUCC 40 mg/ml 1 ml VIAL IV SCH (08:30)
[2024-05-16 08:36] LABS: Urine Potassium Concentration 37.9 mmol/L
[2024-05-16 08:44] LABS: Urine Appearance Extra Turbid; Urine Bacteria 1+ /HPF (Absent); Urine Bilirubin 1+ (Negative); Urine Blood 3+ (Negative); Urine Color Dark-Yellow; Urine Glucose Trace (Negative); Urine Ketones 1+ (Negative); Urine Nitrite Negative (Negative); Urine Protein 2+ (>=100 mg/dL) (Negative); Urine Red Blood Cell 3+(>10/hpf) /HPF (0-Trace); Urine Specific Gravity 1.025 (1.002-1.030); Urine Urobilinogen Negative (Negative); Urine White Blood Cell 2+(11-20/hpf) /HPF (0-Trace); Urine pH 5.5 (5.0-8.0)
[2024-05-16 08:57] LABS: INR 1.54 (0.85-1.14)
[2024-05-16] MEDS ORDERED: Cefepime 2 GM in Dextrose 2 GM/50 ML BAG IV SCH (09:00)
[2024-05-16] MEDS: cefTRIAXone 1 gm/50 mL D5W 1 GM/50 ML BAG IV SCH (09:51)
[2024-05-16] MEDS ORDERED: NS 0.9% 1000 ml BAG 200 ML IV PRN (13:51)
[2024-05-16] MEDS ORDERED: NS 0.9% 1000 ml BAG 100 ML IV PRN (13:51)
[2024-05-16] MEDS ORDERED: Albumin Human 25% 25 GM/100 ML BTL IV PRN (13:51)
[2024-05-16 15:08] LABS: Direct Bilirubin 7.4 mg/dL (0.03-0.18); Indirect Bilirubin 4.9 mg/dL (0.3-1.0)
[2024-05-16 16:02] LABS: Hepatitis B Surface Antigen Nonreactive (Nonreactive)
[2024-05-16 16:19] LABS: Hepatitis B Surface Ab Immune (Immune)
[2024-05-16] MEDS: Heparin 1,000 UNIT/ML 10 ml (10,000 UNITS) CATHLAB/DIALYSIS DIALYSIS PRN (18:10)
[2024-05-16 18:16] VITALS: BP 134/62
[2024-05-17 05:34] LABS: Hematocrit 27.7 % (38-53); Hemoglobin 8.7 g/dL (13.2-16.3); Mean Corpuscular Hemoglobin 31.9 pg (27-33); Mean Corpuscular Hgb Conc 31.5 g/dL (31-36); Mean Corpuscular Volume 101.3 fL (80-97); Mean Platelet Volume 8.8 fL (7.5-11.2); Platelet Count 282 10^3/uL (150-450); Red Blood Count 2.73 10^6/uL (4.06-5.63); Red Cell Distribution Width 18.9 % (12-17); White Blood Count 26.7 10^3/uL (3.6-10.2)
[2024-05-17] MEDS: Furosemide 40 mg/4 ml IV VIAL IV ONE (05:41)
[2024-05-17] MEDS: Furosemide 40 mg/4 ml IV VIAL ONE (05:41)
[2024-05-17 06:21] LABS: Potassium 4.9 mmol/L (3.5-5.0)
[2024-05-17 06:22] LABS: Phosphorus 5.7 mg/dL (2.5-5.0)
[2024-05-17 06:23] LABS: Albumin 4.6 g/dL (3.2-5.2); Albumin/Globulin Ratio 3.1 (1-3); Calcium 8.3 mg/dL (8.6-10.3); Creatinine, Serum 4.75 mg/dL (0.67-1.17); Globulin 1.5 g/dL (2-4); Magnesium 2.6 mg/dL (1.9-2.7); Total Bilirubin 11.9 mg/dL (0.2-1.0); Total Protein 6.1 g/dL (6.4-8.9); eGFR CKD-EPI 15.5 (>60)
[2024-05-17 06:32] LABS: ABS Basophils 0.2 10^3/uL (0.0-0.1); ABS Lymphocytes 2.5 10^3/uL (1.0-4.8); ABS Monocytes 1.9 10^3/uL (0.0-1.1); ABS Neutrophils 22.1 10^3/uL (1.5-7.6); ABS Nucleated RBC 0.06 10^3/ul; Anisocytosis 1+; Eosinophil % 0.1 %; Lymphocyte % 9.2 %; Macrocytosis 1+; Nucleated Red Blood Cells % 0.2 %/100WBC (0.0-0.8)
== END 2024-05-17 10:07 | disposition short-term general hospital (02) | DRG 775 ==
LOC: ED 22:20 → EDHOLD 05-06 04:10 → SUATTDRO 05-06 04:10 → ICU 05-06 04:24
PROVIDERS: ADMIT Internal Medicine; ATTEND Internal Medicine Pulmonary Disease